=== PATIENT | female | born 2000 | race Caucasian/White ===

== ENCOUNTER 2019-07-11 21:14 | Inpatient (IN) | payer BC ==
[2019-07-11] MEDS ORDERED: Sodium Chloride 0.9% 10 ML Syringe FLUSH PRN (23:07)
[2019-07-11] MEDS ORDERED: Calcium Carbonate 500 MG Tab.Chew PO PRN (23:07)
[2019-07-11] MEDS ORDERED: Nalbuphine 10 MG/1 ML Vial IVPUSH PRN (23:07)
[2019-07-11] MEDS ORDERED: Ondansetron 4 MG/2 ML SDV IVPUSH PRN ×2 (23:07→23:20)
[2019-07-11] MEDS ORDERED: Oxytocin/Lactated Ringers 10 UNIT/1,000 ML BAG IV SCH ×2 (23:15)
--- NOTE | 2019-07-11 23:19 | PCM.LDHP ---
<Casper Ewing - Last Filed: 07/11/19 23:50> L&D History of Present Illness - General Date of Service: 07/11/19 Admit Problem/Dx: Patient Status Order with Admit Dx/Problem 07/11/19 21:44 Patient Status [ADT] Routine Admission Diagnosis/Problem Admission Diagnosis/Problem Source of Information: Patient History Limitations: Reports: No Limitations - History of Present Illness Introduction:: Patient is a 18 year old 39-1 healthy female who presents today for rupture of membranes and moderate contractions. NIMISHA is 07/17/19 confirmed by ultrasound. LMP was 10/10/19. Menstruation prior to was light cycles every 28 days. The patient was not using contraception at the time of conception. Patient has past medical history positive for Arnold-Chiari malformation type 1, for which she occasionally has headaches and dizziness, asthma and anxiety. She has no complaints today. Patient is O positive with negative antibody screen done 12/11/18. Her hemoglobin at initial visit was 14.0 g/dL with subsequent hemoglobins of 11.4 g/dL on 04/17/19, 11.8 g/ dL on 06/14/19. Platelets at initial visit 12/11/18 were 228,000 with subsequent platelets of 195,000 on 04/17/19 and 169,000 on 06/14/19. Patient was found to be immune to Rubella on 01/09/19, had a nonreactive VDRL/RPR on , negative HBsAg on 12/11/18 as well as a negative HIV, gonorrhea, chlamydia screen. She had a 1 hour GTT of 175 on 04/16/19 with subsequent 3 hour GTT of 110 on 04/18/19. EPDS 04/16/19 was 03/30. She does have a past history of severe depression requiring hospitalization. The patient was found to be GBS positive on 06/20/19. She has had an approximately 32 pound weight gain during the course of her . She is unsure if she would like to breastfeed at this time and would like an epidural. Location, : Reports: Lower back Associated Symptoms: Reports: vaginal fluid - Related Data Allergies/Adverse Reactions: Allergies Allergy/AdvReac Type Severity Reaction Status Date / Time No Known Allergies Allergy Verified 01/05/15 08:21 Home Medications: Home Meds Sertraline [Zoloft] 100 mg PO BEDTIME 01/02/15 [History] Hydrocodone/Acetaminophen [[place] 5-325] 1 tab PO Q4H PRN #30 tablet 01/05/15 [Rx ] Past Medical History Respiratory History: Reports: Asthma Other Musculoskeletal History: Tear of the left meniscus 2014 Other Neuro History: Arnold-Chiari Malformation Type I Psychiatric History: Reports: Anxiety, Depression (Severe depression requiring hospitalization) - Past Surgical History Musculoskeletal Surgical History: Reports: Arthroscopic Knee (Left knee meniscus repair in 2014) Social & Family History - Family History Family Medical History: Noncontributory (Patient is adopted, does know her mom but is unaware of any health concerns) - Tobacco Use Smoking Status *Q: Never Smoker - Caffeine Use Caffeine Use: Reports: Coffee - Alcohol Use Alcohol Use History: No - Recreational Drug Use Recreational Drug Use: No - Living Situation & Occupation Living situation: Reports: with Significant Other (Significant other's name is [facility]) H&P Review of Systems - Review of Systems: Review Of Systems: See Below General: Reports: No Symptoms HEENT: Reports: No Symptoms. Denies: Ear Pain, Eye Pain, Headaches, Hearing Changes, Rhinitis, Post Nasal Drip, Sinus Congestion, Visual Changes Pulmonary: Reports: Shortness of Breath, Cough Cardiovascular: Reports: No Symptoms, Edema (Noted mostly in her hands). Denies : Chest Pain, Palpitations Gastrointestinal: Reports: No Symptoms. Denies: Black Stool, Bloody Stool, Constipation, Diarrhea, Difficulty Swallowing, Hematemesis, Hematochezia, Melena , Nausea, Vomiting Genitourinary: Reports: No Symptoms. Denies: Dysuria, Frequency, Burning, Pain Musculoskeletal: Reports: No Symptoms. Denies: Joint Pain, Muscle Pain Skin: Reports: No Symptoms Psychiatric: Reports: No Symptoms. Denies: Depression, Anxiety Neurological: Reports: No Symptoms Hematologic/Lymphatic: Reports: No Symptoms. Denies: Easy Bleeding, Easy Bruising Immunologic: Reports: No Symptoms L&D Exam - Exam Exam: See Below - Vital Signs Vital Signs: Temp 36.1 Pulse 83 Respirations 12 Blood pressure 130/84 SPO2 95% on room air - OB Specific Contraction Intensity: Mild Movement: Active Heart Tones: Present Heart Rate (FHR) Variability: Moderate (6-25 bmp) Presentation: Vertex - Pan Score Pan Score Effacement: 51-70% Pan Score Dilation: 3-4 cm Pan Score 's Station: -1 ,0 - Exam General: Alert, Oriented HEENT: Conjunctiva Clear, EOMI, Hearing Intact, Mucosa Moist & [place], Nares Patent, Pupils Equal Neck: Supple, Trachea Midline. No: Lymphadenopathy, Thyromegaly Lungs: Clear to Auscultation, Normal Respiratory Effort Cardiovascular: Regular Rate, Regular Rhythm GI/Abdominal Exam: Normal Bowel Sounds, Soft, Non-Tender Rectal Exam: Deferred Back Exam: Normal Inspection Extremities: Normal Inspection, Non-Tender, No Pedal Edema Skin: Warm, Dry, Intact Neurological: Cranial Nerves Intact Psychiatric: Alert, Normal Affect, Normal Mood - Patient Data Lab Results Last 24 hrs: Laboratory Results - last 24 hr 07/11/19 Range/Units 21:40 Membrane Rupture Positive H Result Diagrams: 07/11/19 23:25 - Problem List (1) SNOMED Code(s): 27063741 ICD Code: Z34.90 - ENCNTR FOR SUPRVSN OF NORMAL , UNSP, UNSP TRIMESTER Status: Acute Current Visit: Yes Qualifiers: Weeks of gestation: 39 weeks Qualified Code(s): Z3A.39 - 39 weeks gestation of Problem List Initiated/Reviewed/Updated: Yes Orders Last 24hrs: Active Orders 24 hr Category Date Time Status Patient Status [ADT] Routine ADT 07/11/19 21:44 Active Non Stress Test [RC] PER UNIT ROUTINE Care 07/11/19 21:44 Active Vital Signs [RC] PER UNIT ROUTINE Care 07/11/19 21:44 Active Resuscitation Status Routine Resus Stat 07/11/19 21:44 Ordered <Fernando Fermin - Last Filed: 07/12/19 01:16> L&D History of Present Illness - General Admit Problem/Dx: Patient Status Order with Admit Dx/Problem 07/11/19 21:44 Patient Status [ADT] Routine 07/11/19 23:08 Patient Status [ADT] Routine Admission Diagnosis/Problem Admission Diagnosis/Problem Social & Family History - Tobacco Core Measures Tobacco Use/Smoking Within Last 30 Days: No Smokeless Tobacco Use in Last 30 Days: No L&D Exam - Vital Signs Vital Signs: Last Vital Signs Temp 36.7 C 07/11/19 22:37 Pulse 83 07/11/19 22:37 Resp 12 07/11/19 22:37 BP 130/84 07/11/19 22:37 Pulse Ox 95 07/11/19 22:37 - Patient Data Lab Results Last 24 hrs: Laboratory Results - last 24 hr 07/11/19 07/11/19 Range/Units 21:40 23:25 WBC 12.64 H (3.98-10.04) K/mm3 RBC 3.43 L (3.98-5.22) M/mm3 Hgb 11.5 (11.2-15.7) gm/L Hct 33.5 L (34.1-44.9) % MCV 97.7 H (79.4-94.8) fl MCH 33.5 H (25.6-32.2) pg MCHC 34.3 (32.2-35.5) g/dl RDW Std Deviation 44.3 (36.4-46.3) fL Plt Count 143 L (182-369) K/mm3 MPV 12.2 (9.4-12.3) fl Neut % (Auto) 76.1 H (34.0-71.1) % Lymph % (Auto) 14.0 L (19.3-51.7) % [place] % (Auto) 8.7 (4.7-12.5) % Eos % (Auto) 0.4 L (0.7-5.8) Baso % (Auto) 0.2 (0.1-1.2) % Neut # (Auto) 9.61 H (1.56-6.13) K/mm3 Lymph # (Auto) 1.77 (1.18-3.74) K/mm3 [place] # (Auto) 1.10 H (0.24-0.36) K/mm3 Eos # (Auto) 0.05 (0.04-0.36) K/mm3 Baso # (Auto) 0.03 (0.01-0.08) K/mm3 Membrane Rupture Positive H Result Diagrams: 07/11/19 23:25 - Problem List (1) 39 weeks gestation of SNOMED Code(s): 17419855 ICD Code: Z3A.39 - 39 WEEKS GESTATION OF Status: Acute Current Visit: Yes (2) GBS (group B Streptococcus carrier), +RV culture, currently SNOMED Code(s): 2174771772021, 912756527, 1416240560507 ICD Code: O99.820 - STREPTOCOCCUS B CARRIER STATE COMPLICATING Status: Acute Current Visit: Yes (3) Arnold-Chiari malformation, type I Status: Acute Current Visit: Yes (4) Anxiety SNOMED Code(s): 67914841 ICD Code: F41.9 - ANXIETY DISORDER, UNSPECIFIED Status: Acute Current Visit: Yes (5) Asthma SNOMED Code(s): 664540097 ICD Code: J45.909 - UNSPECIFIED ASTHMA, UNCOMPLICATED Status: Acute Current Visit: Yes Orders Last 24hrs: Active Orders 24 hr Category Date Time Status Patient Status [ADT] Routine ADT 07/11/19 23:08 Active Activity as Tolerated [RC] PFP Care 07/11/19 23:08 Active Communication Order [RC] ASDIRECTED Care 07/11/19 23:08 Active Heart Tones [RC] ASDIRECTED Care 07/11/19 23:08 Active Non Stress Test [RC] PER UNIT ROUTINE Care 07/11/19 21:44 Active Notify Provider [RC] ASDIRECTED Care 07/11/19 23:19 Active Notify Provider [RC] PFP Care 07/11/19 23:08 Active Notify Provider [RC] PRN Care 07/11/19 23:08 Active Oxygen Therapy [RC] ASDIRECTED Care 07/11/19 23:19 Active Peripheral IV Care [RC] . DIRECTED Care 07/11/19 23:08 Active Pulse Oximetry [RC] ASDIRECTED Care 07/11/19 23:19 Active Vital Signs [RC] PER UNIT ROUTINE Care 07/11/19 21:44 Active Vital Signs [RC] PER UNIT ROUTINE Care 07/11/19 23:08 Active Regular Diet [DIET] Diet 07/12/19 Breakfast Active RAPID PLASMA REAGIN,RPR [CHEM] Routine Lab 07/11/19 23:25 Received Ampicillin 1 gm Med 07/12/19 03:30 Active Sodium Chloride 0.9% [Normal Saline] 100 ml IV Q4H Bupivacaine/fentaNYL/NS [fentaNYL/Bupivacaine/NS 2 MCG- Med 07/11/19 23:30 Active 0.125% 100 ML] 100 ml EPIDUR ASDIRECTED Calcium Carbonate [Tums] Med 07/11/19 23:07 Active 1,000 mg PO Q2H PRN Lactated Ringers [Ringers, Lactated] 1,000 ml Med 07/11/19 23:15 Active IV ASDIRECTED Nalbuphine [Nubain] Med 07/11/19 23:07 Active 10 mg IVPUSH Q2H PRN Ondansetron [Zofran] Med 07/11/19 23:20 Active 4 mg IVPUSH ONETIME PRN Ondansetron [Zofran] Med 07/11/19 23:07 Active 4 mg IVPUSH Q4H PRN Oxytocin/Lactated Ringers [Pitocin in LR 10 Units/1,000 Med 07/11/19 23:15 Active ML] 10 unit in 1,000 ml IV .CONTINUOUS Oxytocin/Lactated Ringers [Pitocin in LR 10 Units/1,000 Med 07/11/19 23:15 Active ML] 10 unit in 1,000 ml IV TITRATE Phenylephrine [Armando-Synephrine] 1 mg Med 07/11/19 23:30 Active Sodium Chloride 0.9% [Normal Saline] 10 ml IV TITRATE Sodium Chloride 0.9% [Saline Flush] Med 07/11/19 23:07 Active 10 ml FLUSH ASDIRECTED PRN ePHEDrine [ePHEDrine sulfate] [facility] 07/11/19 23:20 Active 5 mg IVPUSH ASDIRECTED PRN fentaNYL [Sublimaze] [facility] 07/11/19 23:20 Active 100 mcg EPIDUR Q3H PRN Electronic Heart Tones Ext w TOCO [WOMSER] Ot 07/11/19 23:08 Ordered Routine Electronic Heart Tones Internal [WOMSER] Per Unit Ot 07/11/19 23:08 Ordered Routine Peripheral IV Insertion Adult [OM.PC] Routine Oth 07/11/19 23:08 Ordered Resuscitation Status Routine Resus Stat 07/11/19 21:44 Ordered Medication Orders Calcium Carbonate/Glycine (Tums) 1,000 mg PO Q2H PRN PRN Reason: Indigestion Ephedrine Sulfate (Ephedrine Sulfate) 5 mg IVPUSH ASDIRECTED PRN PRN Reason: Hypotension Fentanyl (Sublimaze) 100 mcg EPIDUR Q3H PRN PRN Reason: Pain Fentanyl/Bupivacaine HCl (Fentanyl/Bupivacaine/Ns 2 Mcg-0.125% 100 Ml) 100 ml EPIDUR ASDIRECTED SHREYA Lactated Ringer's (Ringers, Lactated) 1,000 mls @ 100 mls/hr IV ASDIRECTED SHREYA Oxytocin/Lactated Ringer's (Pitocin In Lr 10 Units/1,000 Ml) 10 unit in 1,000 mls @ 12 mls/hr IV TITRATE SHREYA; Protocol Oxytocin/Lactated Ringer's (Pitocin In Lr 10 Units/1,000 Ml) 10 unit in 1,000 mls @ 500 mls/hr IV .CONTINUOUS SHREYA Ampicillin Sodium 1 gm/ Sodium (Chloride) 100 mls @ 200 mls/hr IV Q4H SHREYA Phenylephrine HCl 1 mg/ Sodium (Chloride) 10.1 mls @ 1 mls/sec IV TITRATE SHREYA; Protocol Nalbuphine HCl (Nubain) 10 mg IVPUSH Q2H PRN PRN Reason: Pain Ondansetron HCl (Zofran) 4 mg IVPUSH Q4H PRN PRN Reason: Nausea/Vomiting Ondansetron HCl (Zofran) 4 mg IVPUSH ONETIME PRN PRN Reason: Nausea/Vomiting Sodium Chloride (Saline Flush) 10 ml FLUSH ASDIRECTED PRN PRN Reason: Keep Vein Open Assessment/Plan Comment:: Refer to observation for spontaneous rupture of membranes based on positive Amnisure Start Pitocin for augmentation of labor with patient having very mild contractions and not having cervical change despite rupture membranes Continuous monitoring Place IV and have Lactated Ringer's at 125 ml/hr May have small amounts of regular diet Activity as tolerated May have epidural as desired Plans to breast-feed after delivery Start on ampicillin 2 g now and have 1 g every 4 hours after for GBS prophylaxis Anticipate vaginal delivery unless otherwise indicated I have seen and evaluated the patient and agree with the medical student's note with the following changes: 3 hour glucose test was normal with fasting value of 75, 1 hour value of 172, 2 hour value of 152 and 3 hour value of 110 Fernando Fermin M.D. 1:16 AM 07/12/2019
[2019-07-11] MEDS ORDERED: fentaNYL 100 MCG/2 ML SDV EPIDUR PRN (23:20)
[2019-07-11] MEDS ORDERED: ePHEDrine 50 MG/ML SDV IVPUSH PRN (23:20)
--- NOTE | 2019-07-11 23:29 | PCM.PREANE ---
Preanesthetic Assessment - Anesthesia/Transfusion/Family Hx Anesthesia History: Prior Anesthesia Without Reaction (2014 knee scope under general anesthesia with no problems noted/Chiari malformation I diagnosed in 2017) Family History of Anesthesia Reaction: No Transfusion History: No Prior Transfusion(s) Intubation History: Unknown - Review of Systems General: No Symptoms Pulmonary: No Symptoms (Asthma- last used inhaler two years ago), Cough Cardiovascular: No Symptoms Gastrointestinal: No Symptoms (GERD) Neurological: No Symptoms (lower back pain with ), Headache ( Significant Arnold Chiari I malformation noted in 2017 via MRI with patient stating only symptoms involved migraine headaches.), Numbness (CTS with bilateral hands) Other: Reports: Depression, Anxiety - Physical Assessment NPO Status Date: 07/11/19 NPO Status Time: 18:00 Vital Signs: Last Vital Signs Temp 36.7 C 07/11/19 22:37 Pulse 83 07/11/19 22:37 Resp 12 07/11/19 22:37 BP 130/84 07/11/19 22:37 Pulse Ox 95 07/11/19 22:37 Height: 1.7 m Weight: 93 kg ASA Class: 2 Mental Status: Alert & Oriented x3 Airway Class: Mallampati = 2 Dentition: Reports: Normal Dentition, Caries Thyro-Mental Finger Breadths: 3 Mouth Opening Finger Breadths: 3 ROM/Head Extension: Full Lungs: Clear to Auscultation, Normal Respiratory Effort Cardiovascular: Regular Rate, Regular Rhythm, No Murmurs - Lab Values: Laboratory Last Values Membrane Rupture Positive H 07/11/19 21:40 All lab values reviewed and noted and within acceptable ranges to proceed with epidural if desired. - Allergies Allergies/Adverse Reactions: Allergies Allergy/AdvReac Type Severity Reaction Status Date / Time No Known Allergies Allergy Verified 01/05/15 08:21 - Anesthesia Plan Pre-Op Medication Ordered: None - Acknowledgements Anesthesia Type Planned: Epidural Pt an Appropriate Candidate for the Planned Anesthesia: Yes Alternatives and Risks of Anesthesia Discussed w Pt/Guardian: Yes Pt/Guardian Understands and Agrees with Anesthesia Plan: Yes PreAnesthesia Questionnaire Respiratory History: Reports: Asthma Other Musculoskeletal History: Tear of the left meniscus 2014 Other Neuro History: Arnold-Chiari Malformation Type I Psychiatric History: Reports: Anxiety - Past Surgical History Musculoskeletal Surgical History: Reports: Arthroscopic Knee (Left knee meniscus repair in 2014) - HOME MEDS Home Medications: Home Meds Sertraline [Zoloft] 100 mg PO BEDTIME 01/02/15 [History] Hydrocodone/Acetaminophen [[place] 5-325] 1 tab PO Q4H PRN #30 tablet 01/05/15 [Rx ] - CURRENT (IN HOUSE) MEDS Current Meds: Current Medications Calcium Carbonate/Glycine (Tums) 1,000 mg PO Q2H PRN PRN Reason: Indigestion Ephedrine Sulfate (Ephedrine Sulfate) 5 mg IVPUSH ASDIRECTED PRN PRN Reason: Hypotension Fentanyl (Sublimaze) 100 mcg EPIDUR Q3H PRN PRN Reason: Pain Fentanyl/Bupivacaine HCl (Fentanyl/Bupivacaine/Ns 2 Mcg-0.125% 100 Ml) 100 ml EPIDUR ASDIRECTED SHREYA Lactated Ringer's (Ringers, Lactated) 1,000 mls @ 100 mls/hr IV ASDIRECTED SHREYA Oxytocin/Lactated Ringer's (Pitocin In Lr 10 Units/1,000 Ml) 10 unit in 1,000 mls @ 12 mls/hr IV TITRATE SHREYA; Protocol Oxytocin/Lactated Ringer's (Pitocin In Lr 10 Units/1,000 Ml) 10 unit in 1,000 mls @ 500 mls/hr IV .CONTINUOUS SHREYA Ampicillin Sodium 2 gm/ Sodium (Chloride) 100 mls @ 200 mls/hr IV ONETIME ONE Stop: 07/11/19 23:59 Ampicillin Sodium 1 gm/ Sodium (Chloride) 100 mls @ 200 mls/hr IV Q4H SHREYA Phenylephrine HCl 1 mg/ Sodium (Chloride) 10.1 mls @ 1 mls/sec IV TITRATE SHREYA; Protocol Nalbuphine HCl (Nubain) 10 mg IVPUSH Q2H PRN PRN Reason: Pain Ondansetron HCl (Zofran) 4 mg IVPUSH Q4H PRN PRN Reason: Nausea/Vomiting Ondansetron HCl (Zofran) 4 mg IVPUSH ONETIME PRN PRN Reason: Nausea/Vomiting Sodium Chloride (Saline Flush) 10 ml FLUSH ASDIRECTED PRN PRN Reason: Keep Vein Open
[2019-07-11] MEDS ORDERED: Ampicillin 2 GM in Sodium Chloride 0.9% 100 ML IV ONE (23:30)
[2019-07-11] MEDS ORDERED: Bupivacaine/fentaNYL/NS 100 ML Bag EPIDUR SCH (23:30)
[2019-07-11] MEDS ORDERED: Phenylephrine 1 MG in Sodium Chloride 0.9% 10 ML IV SCH (23:30)
--- NOTE | 2019-07-12 01:47 | PCM.PNLD ---
Labor Progress Note - VS & Meds Vital Signs: Last Vital Signs Temp 36.7 C 07/11/19 22:37 Pulse 83 07/11/19 22:37 Resp 12 07/11/19 22:37 BP 130/84 07/11/19 22:37 Pulse Ox 95 07/11/19 22:37 Active Medications: Current Medications Calcium Carbonate/Glycine (Tums) 1,000 mg PO Q2H PRN PRN Reason: Indigestion Ephedrine Sulfate (Ephedrine Sulfate) 5 mg IVPUSH ASDIRECTED PRN PRN Reason: Hypotension Fentanyl (Sublimaze) 100 mcg EPIDUR Q3H PRN PRN Reason: Pain Fentanyl/Bupivacaine HCl (Fentanyl/Bupivacaine/Ns 2 Mcg-0.125% 100 Ml) 100 ml EPIDUR ASDIRECTED SHREYA Lactated Ringer's (Ringers, Lactated) 1,000 mls @ 100 mls/hr IV ASDIRECTED SHREYA Oxytocin/Lactated Ringer's (Pitocin In Lr 10 Units/1,000 Ml) 10 unit in 1,000 mls @ 12 mls/hr IV TITRATE SHREYA; Protocol Oxytocin/Lactated Ringer's (Pitocin In Lr 10 Units/1,000 Ml) 10 unit in 1,000 mls @ 500 mls/hr IV .CONTINUOUS SHREYA Ampicillin Sodium 1 gm/ Sodium (Chloride) 100 mls @ 200 mls/hr IV Q4H SHREYA Phenylephrine HCl 1 mg/ Sodium (Chloride) 10.1 mls @ 1 mls/sec IV TITRATE SHREYA; Protocol Nalbuphine HCl (Nubain) 10 mg IVPUSH Q2H PRN PRN Reason: Pain Ondansetron HCl (Zofran) 4 mg IVPUSH Q4H PRN PRN Reason: Nausea/Vomiting Ondansetron HCl (Zofran) 4 mg IVPUSH ONETIME PRN PRN Reason: Nausea/Vomiting Sodium Chloride (Saline Flush) 10 ml FLUSH ASDIRECTED PRN PRN Reason: Keep Vein Open Discontinued Medications Ampicillin Sodium 2 gm/ Sodium (Chloride) 100 mls @ 200 mls/hr IV ONETIME ONE Stop: 07/11/19 23:59 - Uterine Contractions Uterine Monitoring Mode: External [place] Contraction Frequency (min): 3-4 Contraction Duration (sec): 60-75 Contraction Intensity: Mild Uterine Resting Tone: Soft - Monitoring Monitor Mode: Doppler/Auscultation Heart Rate (FHR) Per Doppler: 130 Heart Rate (FHR) Variability: Moderate (6-25 bmp) Accelerations: Present, 15x15 Decelerations: None Strip Review: Category I - Vaginal Exam Dilation (cm): 5 Effacement (Percent): 90 Station: -1 Cervical Position: Posterior Vaginal Exam Comment: Artificial rupture of membranes with [place] of forebag with return of clear fluid. Mother and infant tolerated procedure well. Patient reports increased amounts of pressure and pain after rupture of membranes. - Labor Progress (Free Text) Labor Progress: Patient with minimal progress after having confirmation of rupture of membranes. Patient continue on ampicillin for GBS prophylaxis Artificial rupture membranes with return of clear fluid of a forebag that was present at time of exam. Patient likely had higher rupture membranes with small leak that caused the positive Amnisure test. Continue to monitor vital signs Start Pitocin for augmentation of labor Patient plans for epidural for anesthesia Anticipate vaginal delivery unless otherwise indicated Fernando Fermin M.D. 1:47 AM 07/12/2019
[2019-07-12] MEDS: Lactated Ringers 1,000 ML IV SCH ×4 (02:45→03:55)
[2019-07-12] MEDS: Ampicillin 1 GM in Sodium Chloride 0.9% 100 ML IV SCH (03:54)
--- NOTE | 2019-07-12 07:30 | PCM.DEL ---
L & D Note - General Info Date of Service: 07/12/19 Mother's Due Date: 07/17/19 - Delivery Note Labor: Augmented by ARM Delivery Outcome: Livebirth Delivery Method: Spontaneous Vaginal Delivery-Single Presentation: Right Occiput Anterior (JASBIR) Nuchal Cord: Present (x1), Reduced Prep: Povidone-Iodine (Betadine Anesthesia Type: Epidural Amniotic Fluid Description: Clear Episiotomy Type: None Laceration: 2nd Degree, Perineal (midline, repaired with 3-0 Vicryl) Suture type: Vicryl Suture size: 3-0 Placenta: Intact, Spontaneous Cord: 3 Vessels Estimated Blood Loss: 300 Resuscitation Needed: No : Bulb Syringe, Cathether, Stimulated Provider: Fernando Fermin Score 1 min: 8 Score 5 min: 9 Second Stage Interventions: Reports: Pushing Effectively, Pushing, Stirrups/Leg Supports Delivery Comments (Free Text/Narrative):: Stage I: Shukri Snow was admitted for spontaneous rupture of membranes that was confirmed with positive Amnisure test. She had small amount of clear fluid discharge at home prior to arrival to labor and delivery. She started to have some contractions at home that were increasing in intensity over time. On admission her cervix was dilated to 4 cm. She was GBS positive and was started on ampicillin for GBS prophylaxis. She received a total of 2 doses prior to delivery. She had artificial rupture membranes of a forebag with additional clear fluid. She was given an epidural for anesthesia. She progressed to complete and pushing. Stage II: On 07/12/2019 she had a normal vaginal delivery of a live female infant at 06:08. Apgars of 8 & 9. Weight of 3840 g (8 lbs 7.5 oz). Length of 21 inches. There was a single nuchal cord that was reduced prior to delivery. Infant was delivered in JASBIR position. The cord was doubly clamped and cut by maternal grandmother the infant. Infant was placed on mother's abdomen. Stage III: She had a spontaneous delivery of an intact placenta in [place] presentation. Three vessel cord. She was given pitocin and fundal massage. She had a second-degree midline perineal laceration with extension to the muscle capsule of the external anal sphincter. A reinforcing [id number] stitch on the muscle capsule with 3-0 Vicryl was placed. The midline perineal laceration was repaired with 3-0 Vicryl. Mom and baby were stable to recovery. EBL of 300 mL. Fernando Fermin MD 7:26 AM 07/12/2019 - General Info Date of Service: 07/12/19 - Patient Data Vitals - Most Recent: Last Vital Signs Temp 36.7 C 07/11/19 22:37 Pulse 83 07/11/19 22:37 Resp 12 07/11/19 22:37 BP 130/84 07/11/19 22:37 Pulse Ox 95 07/11/19 22:37 Weight - Most Recent: 93 kg Lab Results Last 24 Hours: Laboratory Results - last 24 hr 07/11/19 07/11/19 Range/Units 21:40 23:25 WBC 12.64 H (3.98-10.04) K/mm3 RBC 3.43 L (3.98-5.22) M/mm3 Hgb 11.5 (11.2-15.7) gm/L Hct 33.5 L (34.1-44.9) % MCV 97.7 H (79.4-94.8) fl MCH 33.5 H (25.6-32.2) pg MCHC 34.3 (32.2-35.5) g/dl RDW Std Deviation 44.3 (36.4-46.3) fL Plt Count 143 L (182-369) K/mm3 MPV 12.2 (9.4-12.3) fl Neut % (Auto) 76.1 H (34.0-71.1) % Lymph % (Auto) 14.0 L (19.3-51.7) % [place] % (Auto) 8.7 (4.7-12.5) % Eos % (Auto) 0.4 L (0.7-5.8) Baso % (Auto) 0.2 (0.1-1.2) % Neut # (Auto) 9.61 H (1.56-6.13) K/mm3 Lymph # (Auto) 1.77 (1.18-3.74) K/mm3 [place] # (Auto) 1.10 H (0.24-0.36) K/mm3 Eos # (Auto) 0.05 (0.04-0.36) K/mm3 Baso # (Auto) 0.03 (0.01-0.08) K/mm3 Membrane Rupture Positive H Med Orders - Current: Current Medications Calcium Carbonate/Glycine (Tums) 1,000 mg PO Q2H PRN PRN Reason: Indigestion Ephedrine Sulfate (Ephedrine Sulfate) 5 mg IVPUSH ASDIRECTED PRN PRN Reason: Hypotension Fentanyl (Sublimaze) 100 mcg EPIDUR Q3H PRN PRN Reason: Pain Last Admin: 07/12/19 02:16 Dose: 100 mcg Fentanyl/Bupivacaine HCl (Fentanyl/Bupivacaine/Ns 2 Mcg-0.125% 100 Ml) 100 ml EPIDUR ASDIRECTED SHREYA Last Admin: 07/12/19 02:18 Dose: 100 ml Lactated Ringer's (Ringers, Lactated) 1,000 mls @ 100 mls/hr IV ASDIRECTED SHREYA Last Admin: 07/12/19 03:55 Dose: 100 mls/hr Oxytocin/Lactated Ringer's (Pitocin In Lr 10 Units/1,000 Ml) 10 unit in 1,000 mls @ 12 mls/hr IV TITRATE SHREYA; Protocol Oxytocin/Lactated Ringer's (Pitocin In Lr 10 Units/1,000 Ml) 10 unit in 1,000 mls @ 500 mls/hr IV .CONTINUOUS SHREYA Ampicillin Sodium 1 gm/ Sodium (Chloride) 100 mls @ 200 mls/hr IV Q4H SHREYA Last Admin: 07/12/19 03:54 Dose: 200 mls/hr Phenylephrine HCl 1 mg/ Sodium (Chloride) 10.1 mls @ 1 mls/sec IV TITRATE SHREYA; Protocol Nalbuphine HCl (Nubain) 10 mg IVPUSH Q2H PRN PRN Reason: Pain Ondansetron HCl (Zofran) 4 mg IVPUSH Q4H PRN PRN Reason: Nausea/Vomiting Ondansetron HCl (Zofran) 4 mg IVPUSH ONETIME PRN PRN Reason: Nausea/Vomiting Sodium Chloride (Saline Flush) 10 ml FLUSH ASDIRECTED PRN PRN Reason: Keep Vein Open Discontinued Medications Ampicillin Sodium 2 gm/ Sodium (Chloride) 100 mls @ 200 mls/hr IV ONETIME ONE Stop: 07/11/19 23:59 Last Admin: 07/12/19 00:15 Dose: 200 mls/hr - Problem List & Annotations (1) 39 weeks gestation of SNOMED Code(s): 34535479 Code(s): Z3A.39 - 39 WEEKS GESTATION OF Status: Acute Current Visit: Yes (2) GBS (group B Streptococcus carrier), +RV culture, currently SNOMED Code(s): 5807325877090, 321812098, 5886828938185 Code(s): O99.820 - STREPTOCOCCUS B CARRIER STATE COMPLICATING Status: Acute Current Visit: Yes (3) Arnold-Chiari malformation, type I Status: Acute Current Visit: Yes (4) Anxiety SNOMED Code(s): 42634175 Code(s): F41.9 - ANXIETY DISORDER, UNSPECIFIED Status: Acute Current Visit: Yes (5) Asthma SNOMED Code(s): 371748794 Code(s): J45.909 - UNSPECIFIED ASTHMA, UNCOMPLICATED Status: Acute Current Visit: Yes (6) Vaginal delivery SNOMED Code(s): 738447386 Code(s): O80 - ENCOUNTER FOR FULL-TERM UNCOMPLICATED DELIVERY Status: Acute Current Visit: Yes (7) Second degree perineal laceration during delivery SNOMED Code(s): 5915294 Code(s): O70.1 - SECOND DEGREE PERINEAL LACERATION DURING DELIVERY Status: Acute Current Visit: Yes - Problem List Review Problem List Initiated/Reviewed/Updated: Yes - My Orders Last 24 Hours: My Active Orders 07/11/19 21:44 Non Stress Test [RC] PER UNIT ROUTINE Vital Signs [RC] PER UNIT ROUTINE Resuscitation Status Routine 07/11/19 23:07 Calcium Carbonate [Tums] 1,000 mg PO Q2H PRN Nalbuphine [Nubain] 10 mg IVPUSH Q2H PRN Ondansetron [Zofran] 4 mg IVPUSH Q4H PRN Sodium Chloride 0.9% [Saline Flush] 10 ml FLUSH ASDIRECTED PRN 07/11/19 23:08 Patient Status [ADT] Routine Activity as Tolerated [RC] PFP Communication Order [RC] ASDIRECTED Heart Tones [RC] ASDIRECTED Notify Provider [RC] PFP Notify Provider [RC] PRN Peripheral IV Care [RC] . DIRECTED Vital Signs [RC] PER UNIT ROUTINE Electronic Heart Tones Ext w TOCO [WOMSER] Routine Electronic Heart Tones Internal [WOMSER] Per Unit Routine Peripheral IV Insertion Adult [OM.PC] Routine 07/11/19 23:15 Lactated Ringers [Ringers, Lactated] 1,000 ml IV ASDIRECTED Oxytocin/Lactated Ringers [Pitocin in LR 10 Units/1,000 ML] 10 unit in 1,000 ml IV .CONTINUOUS Oxytocin/Lactated Ringers [Pitocin in LR 10 Units/1,000 ML] 10 unit in 1,000 ml IV TITRATE 07/11/19 23:25 RAPID PLASMA REAGIN,RPR [CHEM] Routine 07/12/19 03:30 Ampicillin 1 gm Sodium Chloride 0.9% [Normal Saline] 100 ml IV Q4H 07/12/19 07:09 Patient Status Manage Transfer [TRANSFER] Routine 07/12/19 Breakfast Regular Diet [DIET] - Plan Plan:: Admit to inpatient following normal spontaneous vaginal delivery Continue Pitocin per unit protocol following delivery of placenta and lactated Ringer's until tolerating regular diet Regular diet Vitals per unit routine Ibuprofen and Tylenol for pain control Assist with breast-feeding as needed Continue to monitor lochia Anticipate discharge home on day #2 Fernando Fermin MD 7:26 AM 07/12/2019
[2019-07-12] MEDS ORDERED: Benzocaine/Menthol 20%-0.5% Spray 56 GM Canister TOP PRN (08:45)
[2019-07-12] MEDS ORDERED: Hydrocortisone Acetate 25 MG Supp RECTAL PRN (08:45)
[2019-07-12] MEDS ORDERED: Lanolin 100% Cream 7 GM Tube TOP PRN (08:45)
[2019-07-12] MEDS ORDERED: Docusate Sodium 100 MG Cap PO PRN (08:45)
[2019-07-12] MEDS ORDERED: Oxytocin/Lactated Ringers 10 UNIT/1,000 ML BAG IV SCH (08:45)
[2019-07-12] MEDS ORDERED: Magnesium Hydroxide 400 MG/5 ML Susp 30 ML Cup PO PRN (08:45)
[2019-07-12] MEDS ORDERED: Witch Hazel Medicated Pads 40/Jar TOP PRN (08:45)
[2019-07-12] MEDS ORDERED: Acetaminophen 325 MG Tab PO PRN (08:45)
[2019-07-12] MEDS: Prenatal Multivitamin with Calcium/Folic Acid/Iron Tab PO SCH (09:08)
[2019-07-12] MEDS: Ibuprofen 600 MG Tab PO PRN (20:15)
[2019-07-13] MEDS ORDERED: Bupivacaine 0.25% 10 ML SDV ONE
[2019-07-13] MEDS: Ibuprofen 600 MG Tab PO PRN ×2 (03:28→14:06)
[2019-07-13] MEDS: Ampicillin 1 GM in Sodium Chloride 0.9% 100 ML IV SCH (05:32)
--- NOTE | 2019-07-13 07:53 | PCM.DCSUM1 ---
Discharge Summary - Hospital Course Brief History: Admitted with [facility]. Unremarkable course. Discharged PPD1 Diagnosis: Stroke: No - Discharge Data Discharge Date: 07/13/19 Discharge Disposition: Home, Self-Care 01 Condition: Good - Patient Summary/Data Operative Procedure(s) Performed: Hospital Course: Admitted with [facility], , unremarkable course. - Patient Instructions Diet: Usual Diet as Tolerated Driving: May Drive Today Showering/Bathing: May Shower Wound/Incision Care: Keep Operative Site/Wound Site Clean and Dry, Change Dressing Daily, Do NOT Change Dressing Notify Provider of: Fever, Increased Pain, Swelling and Redness, Drainage, Nausea and/or Vomiting - Discharge Plan *PRESCRIPTION DRUG MONITORING PROGRAM REVIEWED*: No *COPY OF PRESCRIPTION DRUG MONITORING REPORT IN PATIENT DARIN: No Home Medications: Home Meds PNV95/Ferrous Fumarate/FA [ Tablet] 1 tab PO DAILY 07/12/19 [History] Referrals: Fernando Fermin MD [Primary Care Provider] - (2 weeks) - Discharge Summary/Plan Comment DC Time >30 min.: No - General Info Date of Service: 07/13/19 Functional Status: Reports: Pain Controlled - Review of Systems General: Reports: No Symptoms HEENT: Reports: No Symptoms Pulmonary: Reports: No Symptoms Cardiovascular: Reports: No Symptoms Gastrointestinal: Reports: No Symptoms Genitourinary: Reports: No Symptoms Musculoskeletal: Reports: No Symptoms Skin: Reports: No Symptoms Neurological: Reports: No Symptoms Psychiatric: Reports: No Symptoms - Patient Data Vitals - Most Recent: Last Vital Signs Temp 36.5 C 07/13/19 03:28 Pulse 74 07/13/19 03:28 Resp 16 07/13/19 03:28 BP 113/73 07/13/19 03:28 Pulse Ox 97 07/13/19 03:28 Weight - Most Recent: 93 kg Lab Results - Last 24 hrs: Laboratory Results - last 24 hr 07/11/19 Range/Units 23:25 RPR Non-reactive (NONREACTIVE) Med Orders - Current: Current Medications Acetaminophen (Tylenol) 650 mg PO Q6H PRN PRN Reason: mild pain or fever Benzocaine/Menthol (Dermoplast Pain Relief [place]) 0 gm TOP ASDIRECTED PRN PRN Reason: Perineal Comfort Measure Last Admin: 07/12/19 09:09 Dose: 1 can Docusate Sodium (Colace) 100 mg PO BID PRN PRN Reason: Constipation Last Admin: 07/12/19 20:15 Dose: 100 mg Emollient Ointment (Lansinoh Hpa) 0 gm TOP ASDIRECTED PRN PRN Reason: Sore Nipples Hydrocortisone Acetate (Anucort-Hc) 25 mg RECTAL BID PRN PRN Reason: Hemorrhoid pain Oxytocin/Lactated Ringer's (Pitocin In Lr 10 Units/1,000 Ml) 10 unit in 1,000 mls @ 100 mls/hr IV TITRATE SHREYA; Protocol Ibuprofen (Motrin) 600 mg PO Q6H PRN PRN Reason: Mild pain or fever Last Admin: 07/13/19 03:28 Dose: 600 mg Magnesium Hydroxide (Milk Of Magnesia) 30 ml PO BEDTIME PRN PRN Reason: Constipation Prenat Multivit/Director Of Event Management/Iron/Folic Ac ( Plus Iron) 1 each PO DAILY SHREYA Last Admin: 07/12/19 09:08 Dose: 1 each Witch Gely (Tucks) 1 pad TOP ASDIRECTED PRN PRN Reason: Perineal Comfort Measure Last Admin: 07/12/19 09:08 Dose: 1 tub Discontinued Medications Calcium Carbonate/Glycine (Tums) 1,000 mg PO Q2H PRN PRN Reason: Indigestion Ephedrine Sulfate (Ephedrine Sulfate) 5 mg IVPUSH ASDIRECTED PRN PRN Reason: Hypotension Fentanyl (Sublimaze) 100 mcg EPIDUR Q3H PRN PRN Reason: Pain Last Admin: 07/12/19 02:16 Dose: 100 mcg Fentanyl/Bupivacaine HCl (Fentanyl/Bupivacaine/Ns 2 Mcg-0.125% 100 Ml) 100 ml EPIDUR ASDIRECTED SHREYA Last Admin: 07/12/19 02:18 Dose: 100 ml Lactated Ringer's (Ringers, Lactated) 1,000 mls @ 100 mls/hr IV ASDIRECTED SHREYA Last Admin: 07/12/19 03:55 Dose: 100 mls/hr Oxytocin/Lactated Ringer's (Pitocin In Lr 10 Units/1,000 Ml) 10 unit in 1,000 mls @ 12 mls/hr IV TITRATE SHREYA; Protocol Oxytocin/Lactated Ringer's (Pitocin In Lr 10 Units/1,000 Ml) 10 unit in 1,000 mls @ 500 mls/hr IV .CONTINUOUS SHREYA Ampicillin Sodium 2 gm/ Sodium (Chloride) 100 mls @ 200 mls/hr IV ONETIME ONE Stop: 07/11/19 23:59 Last Admin: 07/12/19 00:15 Dose: 200 mls/hr Ampicillin Sodium 1 gm/ Sodium (Chloride) 100 mls @ 200 mls/hr IV Q4H SHREYA Last Admin: 07/13/19 05:32 Dose: Not Given Phenylephrine HCl 1 mg/ Sodium (Chloride) 10.1 mls @ 1 mls/sec IV TITRATE SHREYA; Protocol Nalbuphine HCl (Nubain) 10 mg IVPUSH Q2H PRN PRN Reason: Pain Ondansetron HCl (Zofran) 4 mg IVPUSH Q4H PRN PRN Reason: Nausea/Vomiting Ondansetron HCl (Zofran) 4 mg IVPUSH ONETIME PRN PRN Reason: Nausea/Vomiting Sodium Chloride (Saline Flush) 10 ml FLUSH ASDIRECTED PRN PRN Reason: Keep Vein Open - Exam General: Reports: Alert, Oriented HEENT: Reports: Pupils Equal, Pupils Reactive, EOMI Lungs: Reports: Normal Respiratory Effort GI/Abdominal Exam: Normal Bowel Sounds, Soft, Non-Tender, No Organomegaly, No Distention, Other ([id number]) (Female) Exam: Normal Bimanual Exam Back Exam: Reports: Normal Inspection Extremities: Normal Inspection, Normal Range of Motion, Non-Tender, No Pedal Edema Neurological: Reports: No New Focal Deficit Psy/Mental Status: Reports: Alert, Normal Affect, Normal Mood
--- NOTE | 2019-07-13 09:29 | PCM48HPAN ---
Post Anesthesia Note - EVALUATION WITHIN 48HRS OF ANESTHETIC Vital Signs in Normal Range: Yes Patient Participated in Evaluation: Yes Respiratory Function Stable: Yes Airway Patent: Yes Cardiovascular Function Stable: Yes Hydration Status Stable: Yes Pain Control Satisfactory: Yes Nausea and Vomiting Control Satisfactory: Yes Mental Status Recovered: Yes Vital Signs: Last Vital Signs Temp 36.5 C 07/13/19 03:28 Pulse 74 07/13/19 03:28 Resp 16 07/13/19 03:28 BP 113/73 07/13/19 03:28 Pulse Ox 97 07/13/19 03:28
[2019-07-13] MEDS: Prenatal Multivitamin with Calcium/Folic Acid/Iron Tab PO SCH (15:09)
[2019-07-13 16:41] VITALS: BP 122/73
== END 2019-07-13 16:00 | disposition home or self-care (01) | DRG 560 ==
LOC: JD.OB 21:14 → JD.OBCHECK 21:14 → JD.OB 23:08 → OBSVTOIN 07-12 06:08 → JD.OB 07-12 06:09
PROVIDERS: ADMIT Obstetrics & Gynecology; ATTEND Obstetrics & Gynecology
PROC: 10E0XZZ Delivery of Products of Conception, External Approach (ICD-10-PCS; principal; 2019-07-12)
PROC: 10907ZC Drainage of Amniotic Fluid, Therapeutic from Products of Conception, Via Natural or Artificial Opening (ICD-10-PCS; 2019-07-12)
PROC: 0KQM0ZZ Repair Perineum Muscle, Open Approach (ICD-10-PCS; 2019-07-12)
DX: O69.81X0 Labor and delivery complicated by cord around neck, without compression, not applicable or unspecified (principal); F32.9 Major depressive disorder, single episode, unspecified; F41.9 Anxiety disorder, unspecified; O99.344 Other mental disorders complicating childbirth; O70.1 Second degree perineal laceration during delivery; O99.824 Streptococcus B carrier state complicating childbirth; G93.5 Compression of brain; O75.89 Other specified complications of labor and delivery; Z3A.39 39 weeks gestation of pregnancy; Z37.0 Single live birth
CPT/HCPCS: 36415; 51702; 59025; 59409; 84112; 85025; 86592; A9270-GY; J0290; J3010; J3490; J7030; J7120